=== PATIENT | female | born 1990 | race Caucasian/White ===

== ENCOUNTER 2020-07-01 06:57 | Emergency (ER) | payer OTHER, SELFPAY ==
--- NOTE | 2020-07-01 07:00 | XR_ITS ---
WS: [id number] Exam: XR chest 1V portable [id number] Date/Time of Exam: 07/01/2020 8:18 AM Reason For Exam: chest pain Comparison 02/18/2016. Findings: The lungs are clear and fully expanded. Costophrenic angles are sharp. No infiltrates. Bronchovascula r relief appears normal. Cardiac silhouette is unremarkable. Bony elements are intact. XR/XR chest 1V portable [id number] IMPRESSION: Unremarkable chest radiograph.
--- NOTE | 2020-07-01 07:00 | ECG_ITS ---
[facility] Test Date: 2020-07-01 Pat Name: Ramya Hardy Department: Room: Gender: Female Rn Er: : 1990 Requested By: Edna Cordova Order Number: [id number] Jaclyn MD: Kailey Kraft M.D. Measurements Intervals [place] Rate: 105 P: 39 RI: 148 QRS: 42 QRSD: 106 T: -1 QT: 322 QTc: 426 Interpretive Statements SINUS TACHYCARDIA INCOMPLETE RIGHT BUNDLE BRANCH BLOCK [90+ ms QRS DURATION, TERMINAL R IN V1/V2, 40+ ms S IN I/aVL/V4/V5/V6] NONSPECIFIC T-WAVE ABNORMALITY No previous ECG available for comparison Electronically Signed On 07-01-2020 12:56:50 CDT by Kailey Kraft M.D. [id number]
[2020-07-01 07:14] VITALS: BP 179/87; PULSE 105; RESP 18; O2SAT 99; BMI 42.3
--- NOTE | 2020-07-01 07:19 | ED_ITS ---
HPI - Chest Pain General: Chief Complaint: Chest Pain Stated Complaint: CP Time Seen by Provider: 07/01/20 06:58 Source: patient Mode of arrival: ambulatory Limitations: no limitations History of Present Illness: HPI narrative: Patient is a 30-year-old female with a history of diabetes and hypothyroidism who presents to ED today with a complaint of chest pain. Patient tells me while at work she began noticing pain down her entire left lower extremity. She initially thought it was related to her sciatica. She states she then began noticing chest pain and left arm tingling. She states she is no longer having leg pain. She has not noticed any color or temperature changes to the extremity. She denies swelling or calf pain. She describes her chest pain as chest tightness located in the left side of her chest. She is not having any difficulty breathing or shortness of breath. No nausea. No recent or current URI symptoms. Patient denies any previous cardiac or pulmonary history. PCP is Dr. Mendoza. complaint: chest pain Onset (ago): hour(s) (about one hour ago) Prior episodes: No Onset: during rest Pain location: left chest Pain radiation: none Quality: tightness Relieving factors: nothing Exacerbating factors: nothing Associated symptoms: Deny abdominal pain, dyspnea, fever(s), nausea, palpitations, syncope or vomiting Treatment prior to arrival: none Risk Factors: Coronary artery disease risk factors: diabetes Thoracic aortic dissection risk factors: none Related Data: On Oral Contraceptives: No Review of Systems Const: Denies: fever(s), chills, body aches, fatigue or malaise Eyes: Denies: change in vision, blurry vision or photophobia Card: Reports: chest pain; Denies: palpitations, irregular heart rhythm, edema, swelling of feet/ankles, lightheadedness, syncope, pre-syncope, dyspnea on exertion, orthopnea or leg pain with exertion Resp: Denies: dyspnea, productive cough, pain on inspiration or chest congestion GI: Denies: abdominal pain, nausea, vomiting, heartburn or diarrhea : Denies: flank pain or dysuria Musc: Denies: neck pain, back pain or joint pain Skin/Breast: Denies: rash Neuro: Reports: sensory changes (tingling to L UE); Denies: headache(s), numbness in extremities, weakness in extremities, difficulty walking, dizziness or confusion Physical Exam Const: COMMON NORMALS: no acute distress, patient oriented x3, no limitations and alert GENERAL APPEARANCE: cooperative NUTRITIONAL APPEARANCE: obese ORIENTATION/CONSCIOUSNESS: Yes awake, Yes oriented to person, Yes oriented to place and Yes oriented to time HENMT: COMMON NORMALS: normocephalic and atraumatic HEAD & SCALP: normal to inspection, normocephalic and atraumatic Neck/C-Spine: COMMON NORMALS: full ROM, no lymphadenopathy and no meningeal signs Chest: COMMONS NORMALS: normal inspection of the chest CHEST: Yes tenderness OTHER: mild tenderness to L anterior chest but she states she doesn't really produce her symptoms Resp: COMMON NORMALS: normal respiratory effort and clear to auscultation bilaterally AUSCULTATION: clear to auscultation bilaterally Cardio: COMMON NORMALS: regular rate and regular rhythm RATE: regular rate RHYTHM: regular rhythm GI: COMMON NORMALS: Normal to inspection, nondistended, normoactive bowel sounds present, Soft to palpation, non-tender, No hepatosplenomegaly present and no masses PALPATION: Yes Soft to palpation and Yes No hepatosplenomegaly present Extremity: COMMON NORMALS: capillary refill normal, no clubbing, cyanosis or edema, no calf tenderness and no pedal edema Neuro: DIALLO COMA SCALE: document GCS findings [place] coma scale eye opening: Spontaneous [place] coma scale verbal response: Orientated [place] coma scale motor response: Obey commands [place] coma scale total score: 15 COMMON NORMALS: patient oriented x3, moves all extremities, no focal motor deficits and no sensory deficits noted SENSORIUM/ORIENTATION: Yes alert, Yes oriented to person, Yes oriented to place and Yes oriented to time MENINGEAL SIGNS: Yes no meningeal signs MOTOR EXAM: 5/5 motor strength present throughout Skin: NARRATIVE SKIN EXAM: no diaphoresis Course Vital Signs: Vital signs: Vital Signs Pulse Rate 100 07/01/20 10:29 Respiratory Rate 22 H 07/01/20 10:29 Blood Pressure 146/85 07/01/20 10:29 Pulse Oximetry 98 07/01/20 10:29 MDM - Chest Pain MDM Narrative: Medical decision making narrative: Patient clinically appears in no acute distress. Her vital signs been stable. Initial and repeat EKGs without ischemic changes. Baseline troponin was 6 with a delta of 0. She has mild elevations to her transaminases most likely related to fatty liver. CXR is normal. Glucose is elevated however patient states they have been running high recently. She has no signs or symptoms concerning for DKA. She does have some tenderness to palpation of her left anterior chest wall. She is completely pain-free after IV morphine. Recommend she follow-up with PCP if symptoms persist. Return to ED precautions given Lab Data: Labs: Lab Results 07/01/20 07/01/20 07/01/20 Range/Units 07:25 07:37 07:37 WBC Cancelled Corrected WBC Cancelled RBC Cancelled Hgb Cancelled Hct Cancelled MCV Cancelled MCH Cancelled MCHC Cancelled RDW Cancelled Plt Count Cancelled MPV Cancelled Gran % Cancelled Neut % (Auto) Cancelled Lymph % (Auto) Cancelled [place] % (Auto) Cancelled Eos % (Auto) Cancelled Baso % (Auto) Cancelled Neut # (Auto) Cancelled Lymph # (Auto) Cancelled [place] # (Auto) Cancelled Eos # (Auto) Cancelled Baso # (Auto) Cancelled Absolute Gran (aut o) Cancelled Nucleated RBC % (a uto) Cancelled Nucleated RBCs # Cancelled Sodium 132 L (136-145) mmol/L Potassium 4.1 (3.5-5.1) mmol/L Chloride 100 (98-107) mmol/L Carbon Dioxide 20 L (22-29) mmol/L Anion Gap 16.1 (5-19) BUN 9 (6-20) mg/dL Creatinine 0.4 L (0.5-0.9) mg/dL GFR Calculation 186.2 H (90-130) mL/min Glucose 283 H (65-115) mg/dL POC Glucose (70-110) mg/dL Calculated Osmolal ity 283 L (285-295) mOsm/k g Calcium 9.2 (8.5-10.5) mg/dL Total Bilirubin 0.2 (0.15-1.2) mg/dL AST 40 H (0-32) U/L ALT 68 H (0-33) U/L Alkaline Phosphata se 50 (35-105) IU/L Troponin T Baselin e 6 (0-10) ng/L Troponin T 120 Min pascual (0-10) ng/L Delta Troponin T (0-10) ABS# Total Protein 7.2 (6.6-8.7) g/dL Albumin 4.3 (3.5-5.2) g/dL Globulin 2.9 (1.3-4.6) g/dL HCG, Qual (Negative) 07/01/20 07/01/20 07/01/20 Range/Units 07:37 07:37 07:53 WBC 6.2 Corrected WBC RBC 4.74 Hgb 12.5 Hct 39.7 MCV 83.8 MCH 26.4 L MCHC 31.5 RDW 14.3 Plt Count 260 MPV 11.6 H Gran % Neut % (Auto) 60.6 Lymph % (Auto) 28.9 [place] % (Auto) 6.0 Eos % (Auto) 2.3 Baso % (Auto) 1.1 Neut # (Auto) 3.76 Lymph # (Auto) 1.8 [place] # (Auto) 0.4 Eos # (Auto) 0.1 Baso # (Auto) 0.1 Absolute Gran (aut o) Nucleated RBC % (a uto) 0 Nucleated RBCs # 0.0 Sodium (136-145) mmol/L Potassium (3.5-5.1) mmol/L Chloride (98-107) mmol/L Carbon Dioxide (22-29) mmol/L Anion Gap (5-19) BUN (6-20) mg/dL Creatinine (0.5-0.9) mg/dL GFR Calculation (90-130) mL/min Glucose (65-115) mg/dL POC Glucose 323 H (70-110) mg/dL Calculated Osmolal ity (285-295) mOsm/k g Calcium (8.5-10.5) mg/dL Total Bilirubin (0.15-1.2) mg/dL AST (0-32) U/L ALT (0-33) U/L Alkaline Phosphata se (35-105) IU/L Troponin T Baselin e (0-10) ng/L Troponin T 120 Min pascual (0-10) ng/L Delta Troponin T (0-10) ABS# Total Protein (6.6-8.7) g/dL Albumin (3.5-5.2) g/dL Globulin (1.3-4.6) g/dL HCG, Qual Negative (Negative) 07/01/20 Range/Units 09:55 WBC Corrected WBC RBC Hgb Hct MCV MCH MCHC RDW Plt Count MPV Gran % Neut % (Auto) Lymph % (Auto) [place] % (Auto) Eos % (Auto) Baso % (Auto) Neut # (Auto) Lymph # (Auto) [place] # (Auto) Eos # (Auto) Baso # (Auto) Absolute Gran (aut o) Nucleated RBC % (a uto) Nucleated RBCs # Sodium (136-145) mmol/L Potassium (3.5-5.1) mmol/L Chloride (98-107) mmol/L Carbon Dioxide (22-29) mmol/L Anion Gap (5-19) BUN (6-20) mg/dL Creatinine (0.5-0.9) mg/dL GFR Calculation (90-130) mL/min Glucose (65-115) mg/dL POC Glucose (70-110) mg/dL Calculated Osmolal ity (285-295) mOsm/k g Calcium (8.5-10.5) mg/dL Total Bilirubin (0.15-1.2) mg/dL AST (0-32) U/L ALT (0-33) U/L Alkaline Phosphata se (35-105) IU/L Troponin T Baselin e (0-10) ng/L Troponin T 120 Min pasc[place] 6.00 (0-10) ng/L Delta Troponin T 0 (0-10) ABS# Total Protein (6.6-8.7) g/dL Albumin (3.5-5.2) g/dL Globulin (1.3-4.6) g/dL HCG, Qual (Negative) Imaging Data^: CXR: Radiologist's impression: [address] [address] XRay Report Signed Patient: Ramya Hardy Unit #: [id number] : 1990 Age/Sex: 30 / F ADM Date: 07/01/20 Loc: ER Room/Bed: Attending Dr: Ordering Provider/Ordering MD: Edna Cordova Date of Service: 07/01/20 Procedure(s): XR chest 1V portable [id number] Accession Number(s): [id number] Report Number: [id number] WS: [id number] Exam: XR chest 1V portable [id number] Date/Time of Exam: 07/01/2020 8:18 AM Reason For Exam: chest pain Comparison 02/18/2016. Findings: The lungs are clear and fully expanded. Costophrenic angles are sharp. No infiltrates. Bronchovascular relief appears normal. Cardiac silhouette is unremarkable. Bony elements are intact. XR/XR chest 1V portable [id number] IMPRESSION: Unremarkable chest radiograph. Dictated By: Isauro York DO Signed By: Isauro York DO Signed Date/Time: 07/01/20819 DD/ 9 EKG Data^: EKG 1: EKG interpretation date: 07/01/20 EKG interpretation time: 07:16 Interpretation: Sinus tachycardia Rate 105 Incomplete RBBB No acute changes when compared to EKG performed on 12/2016 EKG 2: EKG interpretation date: 07/01/20 EKG interpretation time: 09:02 Interpretation: Sinus rhythm Rate 95 No acute changes from EKG performed earlier on same visit Discharge Plan Discharge Patient Disposition: Home Clinical Impression: Atypical chest pain Condition: Stable Prescriptions: No Action glyburide 5 mg tablet 10 mg PO BID RF: 0 levothyroxine 25 mcg tablet 25 mcg PO DAILY RF: 0 metformin 1,000 mg tablet 1,000 mg PO BID RF: 0 Tresiba FlexTouch U-100 100 unit/mL (3 mL) Insulin Pen 50 unit SUBCUT DAILY RF: 0 Discharge Orders: Discharge ED (Routine); Ordered 07/01/20 Ordered By: Edna Cordova Referrals: Michoacano Mendoza MD [Primary Care Provider] - Patient Instructions: Chest Pain - Noncardiac Activity Restrictions/Additional Instructions: Please follow-up with primary care if symptoms persist. He may return to the emergency department for severe chest pain, shortness of breath, difficulty breathing, passing out episodes, fever, or any other concerns you may have. Stand Alone Forms: Work/School Release Coding Level of Care Code ED Oil Well Engineer for Chandrakant Fwangie Exam Comprehensive
[2020-07-01 07:41] VITALS: BP 148/90; PULSE 95; RESP 19; O2SAT 98
[2020-07-01 07:48] VITALS: RESP 19
[2020-07-01] MEDS: morphine 4 mg/mL SDV 1 mL IVP (07:48)
[2020-07-01 07:53] LABS: Basophils # 0.1 10^3/uL (0.0-0.1); Basophils % 1.1 %; Eosinophils # 0.1 10^3/uL (0.0-0.8); Eosinophils % 2.3 %; Hematocrit 39.7 % (37.0-47.0); Hemoglobin 12.5 g/dL (11.5-15.3); Lymphocytes # 1.8 10^3/uL (0.8-4.8); Lymphocytes % 28.9 %; Mean Corpuscular HGB Conc 31.5 g/dL (30.0-36.0); Mean Corpuscular Hemoglobin 26.4 pg (28.0-34.0); Mean Corpuscular Volume 83.8 fL (81-99); Mean Platelet Volume 11.6 fL (7.4-10.4); Monocytes # 0.4 10^3/uL (0.2-0.9); Neutrophils # 3.76 10^3/uL (1.8-7.7); Neutrophils % 60.6 %; Nucleated Red Blood Cells % 0 %; Platelet Count 260 10^3/cmm (130-400); Red Blood Count 4.74 10^6/uL (4.1-5.3); Red Cell Distribution Width 14.3 % (12.1-15.1); White Blood Count 6.2 10^3/uL (4.0-10.0)
[2020-07-01 08:00] LABS: HCG, Serum Qual Negative (Negative)
[2020-07-01 08:03] LABS: Glucose Point of Care 323 mg/dL (70-110)
[2020-07-01 08:05] LABS: Alanine Aminotransferase 68 U/L (0-33); Albumin Level 4.3 g/dL (3.5-5.2); Alkaline Phosphatase 50 IU/L (35-105); Anion Gap 16.1 (5-19); Aspartate Amino Transferase 40 U/L (0-32); Blood Urea Nitrogen 9 mg/dL (6-20); Calcium 9.2 mg/dL (8.5-10.5); Carbon Dioxide 20 mmol/L (22-29); Chloride 100 mmol/L (98-107); Globulin 2.9 g/dL (1.3-4.6); Glomerular Filtration Rate 186.2 mL/min (90-130); Glucose 283 mg/dL (65-115); Osmolality Calculated 283 mOsm/kg (285-295); Potassium 4.1 mmol/L (3.5-5.1); Sodium 132 mmol/L (136-145); Total Bilirubin 0.2 mg/dL (0.15-1.2); Total Protein 7.2 g/dL (6.6-8.7); Troponin(5th) Baseline 6 ng/L (0-10)
[2020-07-01] MEDS: ondansetron 2 mg/ML SDV 2 mL 4 MG IVP (08:21)
[2020-07-01 08:42] VITALS: BP 142/4; PULSE 92; RESP 18; O2SAT 96
--- NOTE | 2020-07-01 09:00 | ECG_ITS ---
[facility] Test Date: 2020-07-01 Pat Name: Ramya Hardy Department: Room: Gender: Female Church Secretary: : 1990 Requested By: Edna Cordova Order Number: [id number] Jaclyn MD: Kailey Kraft M.D. Measurements Intervals [place] Rate: 95 P: 30 SD: 141 QRS: 29 QRSD: 100 T: 3 QT: 330 QTc: 416 Interpretive Statements SINUS RHYTHM NONSPECIFIC T-WAVE ABNORMALITY Compared to ECG 07/01/2020 07:16:37 Sinus tachycardia no longer present Incomplete right bundle-branch block no longer present T-wave abnormality still present Electronically Signed On 07-01-2020 13:01:35 CDT by Kailey Kraft M.D. [id number]
[2020-07-01 10:23] LABS: Troponin 5 2HR Delta 0 ABS# (0-10)
[2020-07-01 10:29] VITALS: BP 146/85; PULSE 100; RESP 22; O2SAT 98
[2020-07-01 10:54] VITALS: BP 130/77; PULSE 98; RESP 18; O2SAT 98
== END 2020-07-01 10:55 | disposition home or self-care (01) ==
PROVIDERS: Emergency Provider Physician Assistant; PCP Family Medicine
DX: R07.89 Other chest pain (principal); Z79.4 Long term (current) use of insulin; E11.9 Type 2 diabetes mellitus without complications
CPT/HCPCS: 36415; 36416; 71045; 80053; 82962; 84484; 84703; 85025; 93005; 96374; 96375; 99284; J2270; J2405

== ENCOUNTER 2020-11-30 16:06 | Emergency (ER) | payer OTHER, SELFPAY ==
[2020-11-30 16:29] VITALS: BP 148/85; PULSE 96; RESP 16; TEMP 36.2; O2SAT 95; BMI 42.9
[2020-11-30 16:35] VITALS: RESP 18
--- NOTE | 2020-11-30 16:36 | XRR_ITS ---
PROCEDURE INFORMATION: Exam: XR Thoracic Spine Exam date and time: 11/30/2020 4:36 PM Age: 30 years old Clinical indication: Injury or trauma; Fall; Blunt trauma (contusions or hematomas); Additional info: Pain after fall TECHNIQUE: Imaging protocol: XR of the thoracic spine. Views: 3 views. COMPARISON: CR XR chest 1V portable [id number] 07/01/2020 8:06 AM FINDINGS: Bones/joints: Normal. No acute fracture. Normal alignment. Soft tissues: Unremarkable. XR/XR thoracic spine 3V* [id number] IMPRESSION: No acute findings.
--- NOTE | 2020-11-30 16:36 | XRR_ITS ---
PROCEDURE INFORMATION: Exam: XR Cervical Spine Exam date and time: 11/30/2020 4:36 PM Age: 30 years old Clinical indication: Injury or trauma; Fall; Blunt trauma; Additional info: Pain TECHNIQUE: Imaging protocol: XR of the cervical spine. Views: 2 or 3 views. COMPARISON: CT Cervical Spine wo* [id number] 07/27/2014 4:40 PM FINDINGS: Bones/joints: Normal. No acute fracture. Normal alignment. Soft tissues: Unremarkable. XR/XR cervical spine 3V* [id number] IMPRESSION: No acute findings.
--- NOTE | 2020-11-30 16:46 | W.ED.FALL ---
HPI - Fall General: Chief Complaint: Fall Stated Complaint: fall, pain in R shoulder/neck &back Time Seen by Provider: 11/30/20 16:35 History of Present Illness: HPI Narrative: 30-year-old female who tripped and fell over her cat complaining of right shoulder some neck and upper back pain no loss of consciousness no other injuries. No previous injuries to her neck or back MD complaint: fall Onset (ago): minute(s) Fall from: standing Fall witnessed: yes, by family Place fall occurred: home Loss of consciousness: None Prolonged down time: no Context: tripped/slipped Location of injury: back Location of injury - extremities: Right: shoulder Severity: mild Quality: aching Associated symptoms-after fall: Denies abdominal pain, chest pain, confusion, difficulty walking, headache(s), hematuria, lightheadedness, neck pain, numbness, short of breath, vertigo or weakness Review of Systems Const: Denies: fever(s), chills, body aches, change in appetite, fatigue or malaise ENMT: Denies: throat pain, ear or mastoid pain, nasal discharge or nasal congestion Card: Denies: chest pain or lightheadedness Resp: Denies: dyspnea, productive cough or non-productive cough GI: Denies: abdominal pain : Denies: hematuria Musc: Denies: neck pain Skin/Breast: Denies: rash or pruritus Neuro: Denies: headache(s), difficulty walking, vertigo or confusion Physical Exam Const: COMMON NORMALS: no acute distress GENERAL APPEARANCE: cooperative and comfortable ORIENTATION/CONSCIOUSNESS: Yes awake, Yes oriented to person, Yes oriented to place and Yes oriented to time HENMT: COMMON NORMALS: normocephalic, atraumatic, hearing grossly normal bilaterally, external ears normal, EAC's normal and TM's normal bilaterally HEAD & SCALP: normocephalic and atraumatic EXTERNAL EAR: Yes external ears normal EXTERNAL AUDITORY CANAL: EAC's normal TYMPANIC MEMBRANE: TM's normal bilaterally Eye: COMMON NORMALS: Equal, round and reactive pupils present, EOMs intact bilaterally, conjunctivae normal and no scleral icterus CONJUNCTIVA: Yes conjunctivae normal PUPIL: Yes Equal, round and reactive pupils present Neck/C-Spine: COMMON NORMALS: full ROM, no lymphadenopathy and supple Resp: COMMON NORMALS: normal respiratory effort, No retractions, No use of accessory muscles and clear to auscultation bilaterally AUSCULTATION: clear to auscultation bilaterally Cardio: COMMON NORMALS: regular rate, regular rhythm and No murmurs present (Cardio) RATE: regular rate RHYTHM: regular rhythm GI: COMMON NORMALS: Soft to palpation and No hepatosplenomegaly present AUSCULTATION: Yes normoactive bowel sounds PALPATION: Yes Soft to palpation, No Tenderness to palpation present (GI), No Guarding due to palpation present (GI) and Yes No hepatosplenomegaly present Extremity: COMMON NORMALS: normal to inspection, capillary refill normal, no clubbing, cyanosis or edema, no calf tenderness and no pedal edema Neuro: SENSORIUM/ORIENTATION: Yes oriented to person, Yes oriented to place and Yes oriented to time Skin: COMMON NORMALS: no rashes or lesions noted GENERAL SKIN EXAM: no rashes or lesions noted Course Vital Signs: Vital signs: Vital Signs Temperature 97.2 F L 11/30/20 16:29 Pulse Rate 98 11/30/20 18:10 Respiratory Rate 17 11/30/20 18:10 Blood Pressure 162/93 11/30/20 18:10 Pulse Oximetry 97 11/30/20 18:10 MDM - Fall MDM Narrative: Medical decision making narrative: Reviewed imaging with the patient no acute fractures discharge home diclofenac to use as needed follow-up as needed Discharge Plan Discharge Patient Disposition: Home Clinical Impression: Fall, Cervicalgia, Thoracic back pain Condition: Stable Prescriptions: New diclofenac sodium 75 mg tablet,delayed release (DR/EC) 75 mg PO Q12H PRN (Reason: pain) Qty: 20 RF: 0 No Action glyburide 5 mg tablet 10 mg PO BID RF: 0 levothyroxine 25 mcg tablet 25 mcg PO DAILY RF: 0 metformin 1,000 mg tablet 1,000 mg PO BID RF: 0 Tresiba FlexTouch U-100 100 unit/mL (3 mL) Insulin Pen 50 unit SUBCUT DAILY RF: 0 Discharge Orders: Discharge ED (Routine); Ordered 11/30/20 Ordered By: Thony Chowdary Referrals: Michoacano Mendoza MD [Primary Care Provider] - Patient Instructions: Opioid Safety Stand Alone Forms: Work/School Release Coding Level of Care Code ED Pattern Grader for Chg Fwd Exam Comprehensive
--- NOTE | 2020-11-30 17:09 | XRR_ITS ---
PROCEDURE INFORMATION: Exam: XR Right Shoulder Exam date and time: 11/30/2020 5:09 PM Age: 30 years old Clinical indication: Injury or trauma; Fall; Blunt trauma (contusions or hematomas); Shoulder; Right; Additional info: Pain TECHNIQUE: Imaging protocol: XR Right shoulder. Views: 2 or more views. COMPARISON: CR XR chest 1V portable [id number] 07/01/2020 8:06 AM FINDINGS: Bones/joints: Normal. Soft tissues: Normal. XR/XR shoulder RT min 2V* [id number] IMPRESSION: No acute findings.
[2020-11-30 18:10] VITALS: BP 162/93; PULSE 98; RESP 17; O2SAT 97
== END 2020-11-30 18:10 | disposition home or self-care (01) ==
PROVIDERS: Emergency Provider Family Medicine; PCP Family Medicine
DX: M54.6 Pain in thoracic spine (principal); M54.2 Cervicalgia; Z79.4 Long term (current) use of insulin
CPT/HCPCS: 72040; 72072; 73030; 99282

== ENCOUNTER → 2021-03-04 07:53 | Outpatient (BNVA) | payer OTHER, SELFPAY | PROVIDERS: PCP Family Medicine; Referring Provider Family Medicine; Visit Provider Specialist | DX: R20.0 Anesthesia of skin (principal); G56.01 Carpal tunnel syndrome, right upper limb | CPT/HCPCS: 95908 ==

== ENCOUNTER → 2021-04-10 00:01 | Outpatient (BNVA) | payer OTHER, SELFPAY | PROVIDERS: PCP Family Medicine; Visit Provider Orthopaedic Surgery | DX: Z01.812 Encounter for preprocedural laboratory examination (principal); Z20.822 Contact with and (suspected) exposure to COVID-19 | CPT/HCPCS: 87635 ==

== ENCOUNTER 2021-04-17 08:56 | Day surgery (SDC) | payer OTHER, SELFPAY ==
[2021-04-16 14:26] VITALS: BMI 44.5
[2021-04-17] VITALS (7 sets, daily range): BP systolic 102–141; BP diastolic 59–78; PULSE 87–101; RESP 18; TEMP 36.2–36.8; O2SAT 93–100
--- NOTE | 2021-04-17 08:29 | W.PM.OPSUD ---
Surgery/Procedure H&P Update DATE OF PROCEDURE: April 17, 2021 DATE H&P PERFORMED: 04/09/21 H&P UPDATE INFORMATION: I have reviewed H&P completed within last 30 days PLANNED PROCEDURE: Operation Date: 04/17/21 10:15 Proposed Procedures p Carpal Tunnel Release(Right) - Bob Martin MD
[2021-04-17 09:32] LABS: OR HCG Qualitative Urine Negative (Negative)
[2021-04-17 09:54] LABS: Glucose Point of Care 99 mg/dL (70-110)
[2021-04-17] MEDS: sodium chloride 0.9% 1,000 ML 30 ML IV (09:56)
--- NOTE | 2021-04-17 10:41 | P.OP_ITS ---
Operative Report Date of procedure: April 17, 2021 Procedure: Pre-op Diagnosis: Right carpal tunnel release Post-op diagnosis: same Post-op Findings: Same Procedure Done: Right carpal tunnel release Pathology: none sent Anesthesia: Nerve Block ([place] block) Estimated blood loss (mL): 2 Tourniquet time (min): 20 Condition: stable Disposition: PACU Procedure: Patient was taken to the operating room and anesthesia provided by the anesthesia service. She was prepped and draped with the arm exposed. A timeout was performed. A 3 cm long incision was made in line with the fourth ray from the distal edge of the carpal tunnel extending proximally. The subcutaneous fat and palmar fascia was divided with a scalpel blade. Under loupe magnification the ulnar neurovascular bundle was identified distally. A hemostat could be passed under the transverse carpal ligament allowing the dis garrett 25% to be divided. A slotted guide was then passed beneath the transverse carpal ligament and the middle 50% divided. Blunt scissors were then passed over the guide freeing the proximal ligament. The tourniquet was deflated. Hemostasis provided with electrocautery. Wound edges were infiltrated with 10 cc of a half percent Marcaine solution. Skin edges were reapproximated with 3-0 Prolene. Sterile dressings were applied. The patient was taken to the recovery room in stable condition
--- NOTE | 2021-04-17 13:09 | ANE.PACU2 ---
Inpatient post-anesthesia follow up: Airway intact: Yes Vital signs: Temperature 98.2 F Pulse Rate 87 Respiratory Rate 18 Blood Pressure 107/78 Pulse Oximetry 96 Oxygen Delivery Me thod Room Air Oxygen Flow Rate Fraction of Inspir ed Oxygen Hydration adequate: Yes Nausea and vomiting: No Pain level: 1 Mental status: Baseline
== END 2021-04-17 13:08 | disposition home or self-care (01) ==
LOC: OR 09:03
PROVIDERS: Anesthesiology; PCP Family Medicine; Visit Provider Orthopaedic Surgery
PROC: (CPT 64721; principal; 2021-04-17 10:05)
DX: G56.01 Carpal tunnel syndrome, right upper limb (principal)
CPT/HCPCS: 64721; 36416; 81025; 82962; 84703; J0690; J2250; J2704; J3010; J3490; J7030

== ENCOUNTER → 2021-05-19 08:16 | Outpatient (BNVA) | payer OTHER, SELFPAY | PROVIDERS: PCP Family Medicine; Visit Provider Orthopaedic Surgery | DX: Z01.812 Encounter for preprocedural laboratory examination (principal); Z20.822 Contact with and (suspected) exposure to COVID-19 | CPT/HCPCS: 87635 ==

== ENCOUNTER 2021-05-22 07:11 | Day surgery (SDC) | payer OTHER, SELFPAY ==
[2021-05-21 15:06] VITALS: BMI 44.9
[2021-05-22 07:26] VITALS: BP 153/86; PULSE 92; RESP 18; TEMP 36.4; O2SAT 99
[2021-05-22 07:52] LABS: Glucose Point of Care 152 mg/dL (70-110)
--- NOTE | 2021-05-22 08:00 | ANES.PREANE2 ---
Pre-Anesthetic Assessment Height/Weight: Height 1.69 m Weight 128.367 kg Temp Pulse Resp BP Pulse Ox 97.5 F L 92 18 153/86 99 05/22/21 07:26 05/22/21 07:26 05/22/21 07:26 05/22/21 07:26 05/22/21 07:26 Preop Diagnosis: Left Carpal tunnel syndrome Operation Date: 05/22/21 08:20 Proposed Procedures p Carpal Tunnel Release 59807 G56.02(Left) - Bob Martin MD Familial anesthetic complications: None Was Beta Carlos taken within 24 hours: N/A Was Clonidine taken within 24 hours: N/A Last intake: Intake Last Liquid Date 05/21/21 Last Liquid Time 19:30 Last Solid Date 05/21/21 Last Solid Time 19:30 Social No alcohol and No tobacco Exam alert, oriented x 3, clear to auscultation bilaterally and regular rate & rhythm Airway Submandibular: within normal limits Cervical ROM: within normal limits Mallampati: Class II Dentition: full CV/HEM Anemia Metabolic Diabetes Mellitus, Morbid Obesity and Thyroid Disease Anesthetic Plan ASA status: 3 Anesthesia: MAC and Regional (specify below) (Julius mad[place]) Medications/Allergies Home Medications Medication Instructions Recorded Confirmed Last Taken Type glyburide 5 mg tablet 10 mg PO BID 07/01/20 05/22/21 05/21/21 History levothyroxine 25 mcg tablet 25 mcg PO DAILY 07/01/20 05/22/21 05/21/21 History metformin 1,000 mg tablet 1,000 mg PO BID 07/01/20 05/22/21 05/21/21 History ferrous sulfate 27 mg iron tablet 27 mg PO DAILY 04/09/21 05/22/21 05/21/21 History insulin glargine 100 unit/mL (3 90 unit SUBCUT BID 04/16/21 05/22/21 05/21/21 History mL) subcutaneous pen (Lantus Solostar U-100 Insulin) liraglutide 0.6 mg/0.1 mL (18 mg/3 1.2 mg SUBCUT DAILY 04/16/21 05/22/21 05/21/21 History mL) subcutaneous pen injector (Victoza 2-Jerry) Allergies Allergy/AdvReac Type Severity Reaction Status Date / Time No Known Allergies Allergy Verified 05/21/21 15:04 [facility] Anesthesia Social History Smoking and tobacco status: never smoked Female Reproductive History Date of last menstrual period: 03/17/21 Data Anesthesia Cardiac Studies: No Data to Display
--- NOTE | 2021-05-22 08:05 | W.PM.OPSUD ---
Surgery/Procedure H&P Update DATE OF PROCEDURE: May 22, 2021 DATE H&P PERFORMED: 05/06/21 H&P UPDATE INFORMATION: I have reviewed H&P completed within last 30 days PREOP DIAGNOSIS: Left Carpal tunnel syndrome PLANNED PROCEDURE: Operation Date: 05/22/21 08:20 Proposed Procedures p Carpal Tunnel Release 11287 G56.02(Left) - Bob Martin MD
[2021-05-22] MEDS: sodium chloride 0.9% 1,000 ML 30 ML IV (08:12)
--- NOTE | 2021-05-22 09:01 | PM.OP ---
Operative Report Date of procedure: May 22, 2021 Pre-op diagnosis: Preop Diagnosis Left Carpal tunnel syndrome Post-op diagnosis: same Post-op diagnosis: Same Procedure done: Left carpal tunnel release Pathology: none sent Surgeon: Bob Martin Anesthesia: Nerve Block (Julius block) Estimated blood loss (mL): 2 Tourniquet time (min): 20 Condition: stable Disposition: PACU Procedure: Patient was taken to the operating room and anesthesia provided by the anesthesia service. She was prepped and draped with the arm exposed. A timeout was performed. A 3 cm long incision was made in line with the fourth ray from the distal edge of the carpal tunnel extending proximally. The subcutaneous fat and palmar fascia was divided with a scalpel blade. Under loupe magnification the ulnar neurovascular bundle was identified distally. A hemostat could be passed under the transverse carpal ligament allowing the distal 25% to be divided. A slotted guide was then passed beneath the transverse carpal ligament and the middle 50% divided. Blunt scissors were then passed over the guide freeing the proximal ligament. The tourniquet was deflated. Hemostasis provided with electrocautery. Wound edges were infiltrated with 10 cc of a half percent Marcaine solution. Skin edges were reapproximated with 3-0 Prolene. Sterile dressings were applied. The patient was taken to the recovery room in stable condition
[2021-05-22 09:02] VITALS: BP 126/73; PULSE 80; RESP 16; TEMP 36.1; O2SAT 99
[2021-05-22 09:07] VITALS: BP 117/77; PULSE 81; RESP 18; O2SAT 99
[2021-05-22 09:12] VITALS: BP 126/77; PULSE 80; RESP 18; TEMP 36.2; O2SAT 99
[2021-05-22 09:18] VITALS: BP 119/73; PULSE 81; RESP 16; TEMP 36.1; O2SAT 97
[2021-05-22 09:48] VITALS: BP 115/75; PULSE 78; RESP 16; TEMP 36.8; O2SAT 99
--- NOTE | 2021-05-22 14:16 | ANE.PACU2 ---
Inpatient post-anesthesia follow up: Airway intact: Yes Vital signs: Temperature 98.2 F Pulse Rate 78 Respiratory Rate 16 Blood Pressure 115/75 Pulse Oximetry 99 Oxygen Delivery Me thod Room Air Oxygen Flow Rate 6 Fraction of Inspir ed Oxygen Hydration adequate: Yes Nausea and vomiting: Yes Pain level: 1 Mental status: Baseline
== END 2021-05-22 10:00 | disposition home or self-care (01) ==
PROVIDERS: PCP Family Medicine; Visit Provider Orthopaedic Surgery
PROC: (CPT 64721; principal; 2021-05-22 08:10)
DX: G56.02 Carpal tunnel syndrome, left upper limb (principal); E11.9 Type 2 diabetes mellitus without complications; E66.01 Morbid (severe) obesity due to excess calories; Z68.42 Body mass index [BMI] 45.0-49.9, adult; Z79.84 Long term (current) use of oral hypoglycemic drugs; Z79.4 Long term (current) use of insulin
CPT/HCPCS: 64721; 36416; 81025; 82962; J0690; J1100; J2250; J2405; J2704; J3010; J3490; J7030

== ENCOUNTER → 2022-01-28 11:46 | Outpatient (BNVA) | payer OTHER, SELFPAY | PROVIDERS: PCP Family Medicine; Visit Provider Clinical Nurse Specialist Adult Health | DX: N39.0 Urinary tract infection, site not specified (principal); N30.01 Acute cystitis with hematuria; M54.31 Sciatica, right side; E11.9 Type 2 diabetes mellitus without complications; M54.32 Sciatica, left side | CPT/HCPCS: 81000; 87086 ==

== ENCOUNTER 2022-02-05 10:50 | Outpatient (CLI) | payer OTHER, SELFPAY ==
--- NOTE | 2022-02-05 10:58 | XR_ITS ---
WS: [id number] Exam: XR lumbar spine 2-3V* [id number] Date/Time of Exam: 02/05/2022 10:58 AM Reason For Exam: Right hip pain Comparison 11/04/2017. 6 lumbar vertebra are noted. No fracture or dislocation. Disc spaces are preserved. Posterior element s are intact. No significant scoliosis. SI joints are open. XR/XR lumbar spine 2-3V* [id number] IMPRESSION: 1. Unremarkable lumbar spine study.
--- NOTE | 2022-02-05 10:58 | XR_ITS ---
WS: [id number] Exam: XR hip RT 2-3V wo/w pel* [id number] Date/Time of Exam: 02/05/2022 10:58 AM Reason For Exam: Right hip pain No fracture or dislocation. The joint compartment is well maintained. Small soft tissue calcification just above the greater trochanter. XR/XR hip RT 2-3V wo/w pel* [id number] IMPRESSION: 1. Negative right hip.
== END 2022-02-05 10:51 | disposition home or self-care (01) ==
LOC: RAD 10:52
PROVIDERS: PCP Family Medicine; Visit Provider Family Medicine
DX: M25.551 Pain in right hip (principal); M54.16 Radiculopathy, lumbar region
CPT/HCPCS: 72100; 73502

== ENCOUNTER 2022-03-18 07:29 | Outpatient (CLI) | payer OTHER, SELFPAY ==
--- NOTE | 2022-03-18 08:00 | MR_ITS ---
WS: [id number] MRI HEAD WITH CONTRAST WITH ATTENTION TO THE INTERNAL AUDITORY CANALS TECHNIQUE: Sagittal T1, T2 axial, T2 axial flair, axial susceptibility weighted imaging, axial diffus ion weighted images, and coronal T2 images were obtained. Pre and post T1 axial and post T1 coronal i mages. ADC and FSPGR images. Post gadolinium images with attention to the internal auditory canals. A xial fiesta imaging. CLINICAL INFORMATION: Hearing loss, left facial numbness COMPARISON: None. FINDINGS: No evidence of restricted diffusion to suggest acute ischemia. Ventricular system and basal cisterns are patent. No suspicious intracranial signal abnormalities. Normal vasquez-white differentiation. No ev idence of mass or mass effect. Normal posterior fossa. Normal vascular flow voids at the skull base. No extra-axial fluid collections. Paranasal sinuses and mastoid air cells well aerated. No hemosideri n on susceptibly weighted images. Noncontrast IACs are normal in appearance. Normal visualized proximal 7th and 8th cranial nerves. Nor mal cavernous sinuses and Meckel's cave. Normal trigeminal nerve root entry zones. Partially visualiz ed enlarged lymph nodes in the upper cervical chain nonspecific partially visualized. This is most li tania reactive in a patient this age. Normal visualized posterior nasopharynx. MR/MR iac's wo con [id number] IMPRESSION: 1. No evidence of restricted diffusion to suggest acute ischemia. 2. No suspicious intracranial signal abnormalities. 3. Noncontrast IACs are normal in appearance. Normal proximal 7th and 8th cran ial nerves. Normal trigeminal nerve root entry zone's. 4. Mastoid air cells are well aerated. 5. Enlarged lymph nodes in the upper cervical chains partially visualized nons pecific but most likely reactive in a patient this age. Recommend clinical mumtaz elation. 6. No hemosiderin on the susceptibility weighted images.
== END 2022-03-18 07:30 | disposition home or self-care (01) ==
LOC: RAD 07:31
PROVIDERS: PCP Family Medicine; Visit Provider Family Medicine
DX: H91.90 Unspecified hearing loss, unspecified ear (principal); R20.0 Anesthesia of skin; R59.0 Localized enlarged lymph nodes
CPT/HCPCS: 70551

== ENCOUNTER → 2022-09-05 10:33 | Outpatient (BNVA) | payer OTHER, SELFPAY | PROVIDERS: PCP Family Medicine; Visit Provider Registered Nurse Neonatal Intensive Care | DX: S60.211A Contusion of right wrist, initial encounter (principal); X58.XXXA Exposure to other specified factors, initial encounter | CPT/HCPCS: 73110 ==

== ENCOUNTER 2023-03-17 05:18 | Emergency (ER) | payer OTHER, SELFPAY ==
[2023-03-17 05:22] VITALS: BP 176/91; PULSE 119; RESP 18; TEMP 36.8; O2SAT 98; BMI 42.3
--- NOTE | 2023-03-17 05:36 | ED_ITS ---
HPI - Skin/Abscess/Foreign Bdy General: Chief complaint: Skin/Abscess/Foreign Body Stated complaint: Spider Bite Time Seen by Provider: 03/17/23 05:22 History of Present Illness: 33-year-old female presents emergency de partment with complaints of area of redness and possible spider bite to her right flank area for the previous 1 week. She states the area seems to have become more painful and has spread to a more circular pattern. She is unsure specifically if she received a spider bite but states that the area has gotten bigger. She states that if you touch the area the pain is a 4 out of 10. She denies fevers chills or night sweats. She denies known injury or trauma. Review of Systems General: Reports: 10 or more systems reviewed and unremarkable except in HPI and below Skin/Breast: Reports: erythema, skin tenderness, sores and new lesions PFSH ED PFSH: Medical History (Updated 03/17/23 @ 05:39 by Donn Walton MD) Sciatica Elevated blood pressure reading without diagnosis of hypertension Hx of renal calculi Hypothyroidism Diabetes mellitus type 2, on insulin Surgical History (Updated 01/28/22 @ 12:31 by Abelardo Kenney NP) Previous section X2 Family History (Updated 01/28/22 @ 12:33 by Abelardo Kenney NP) Sister Female fertility problems Other Diabetes Hyperlipidemia Hypertension Thyroid disease Social History (Updated 01/28/22 @ 12:09 by Abelardo Kenney NP) Smoking and tobacco/nicotine status: never used tobacco/nicotine Alcohol intake: never Substance/Drug Use: never Female Reproductive History: Date of last menstrual period: 02/23/23 Physical Exam Narrative: EXAM NARRATIVE: Constitutional: the patient appears well nourished and of normal development. Vital signs as documented. No acute distress at present. Alert and oriented-to person, place, time and situation. Head, eyes, ears, nose, mouth, throat: Normocephalic, atraumatic. Pupils-equal, round, reactive to light. No scleral icterus. Normal-appearing external ears. Normal appearing nasal turbinates, no drainage. No obvious oral lesions, posterior oropharynx without erythema or exudates. Neck: Supple, trachea is midline, no lymphadenopathy, no jugular venous distension, thyromegaly, or carotid bruits. Carotid upstrokes are brisk bilaterally. Lungs: clear to auscultation to all lung gee. Symmetrical rise and fall of chest, no obvious signs of increased work of breathing at present. Cardiac: Regular rate and rhythm, positive S1, S2. No murmurs, rubs or gallops that I can appreciate Abdomen: Soft, non-tender to palpation, normal active bowel sounds to all quadrants. No palpable masses, no organomegaly and abdominal bruits. Extremities: 2+ pulses in the upper extremities that are equal bilaterally, 2+ pulses in the lower extremities that are equal bilaterally. Non-edematous. Moves all extremities well, sensation to all extremities are noted. Skin: Warm, dry, intact. 4 cm area of erythema consistent with cellulitis to the right flank area there is a central area of necrosis noted. The wound is not draining and it is not fluctuant at present. Course Vital Signs: Vital signs: Vital Signs Temperature 98.3 F 03/17/23 05:22 Pulse Rate 119 H 03/17/23 05:22 Respiratory Rate 18 03/17/23 05:22 Blood Pressure 176/91 03/17/23 05:22 Pulse Oximetry 98 03/17/23 05:22 Oxygen Delivery Me thod Room Air 03/17/23 05:22 MDM - Skin/Abscess/Foreign Bdy Medicial Decision Making Physical exam completed and documented, I will provide the patient written prescription for antibiotics and antibiotic ointment. And I recommended follow- up with her primary care provider in 5 to 7 days for reevaluation. Medical Records I reviewed the patient's medical records. No radiology studies performed this visit Discharge Plan Discharge Patient Disposition: Home Clinical Impression: Cellulitis of right abdominal wall Condition: Stable Prescriptions: New cephalexin 500 mg capsule 500 mg PO BID 10 Days Qty: 20 0RF mupirocin 2 % ointment 1 applic topical BID Qty: 15 0RF No Action Victoza 2-Jerry 0.6 mg/0.1 mL (18 mg/3 mL) pen injector 1.2 mg SUBCUT DAILY Qty: 6 12RF levothyroxine 25 mcg tablet See Rx Instructions .ROUTE .COMPLEX Qty: 90 3RF Dose Instruction: TAKE 1 TABLET BY MOUTH IN THE MORNING 30 MINUTES PRIOR TO EATING WITH WATER ONLY Rx Instructions: TAKE 1 TABLET BY MOUTH IN THE MORNING 30 MINUTES PRIOR TO EATING WITH WATER ONLY metformin 1,000 mg tablet 1,000 mg PO BID Qty: 60 6RF glyburide 5 mg tablet See Rx Instructions .ROUTE .COMPLEX Qty: 120 6RF Dose Instruction: Take 2 tablets by mouth twice daily Rx Instructions: Take 2 tablets by mouth twice daily Lantus Solostar U-100 Insulin 100 unit/mL (3 mL) insulin pen 90 unit SUBCUT BID Qty: 15 11RF Discharge Orders: Discharge ED (Routine); Ordered 03/17/23 Ordered By: Donn Walton Referrals: Michoacano Mendoza MD [Primary Care Provider] - Discharge Diet: Advance as tolerated Discharge Activity: Resume usual activity Patient Instructions: Opioid Safety, Pain Management Activity Restrictions/Additional Instructions: Activity Restrictions/Additional Instructions: Thank you for choosing [facility] for your healthcare needs today. Please realize that you were seen in the Emergency Department and that we are providing you with an emergency medical screening exam and this may not be a complete and all inclusive of all the testing and or medical work-up that you may need to determine your ailment or severity of your illness. It is very important that you follow-up as instructed with your Primary care provider or Specialist for additional evaluation and to discuss your medical treatment plan. You may return to the Emergency Department should you have concerns or if your condition changes or worsens in any way. Follow-up with your primary care provider within the next 5 to 7 days to have your wound reevaluated for possible additional treatment to include incision and drainage. Coding Level of Care Code ED Sheet Layer for Chandrakant Hernandes
[2023-03-17 05:53] VITALS: BP 136/81; PULSE 109; RESP 16; O2SAT 95
== END 2023-03-17 05:53 | disposition home or self-care (01) ==
PROVIDERS: Emergency Provider Internal Medicine; PCP Family Medicine
DX: L03.311 Cellulitis of abdominal wall (principal); Z79.84 Long term (current) use of oral hypoglycemic drugs; Z79.4 Long term (current) use of insulin; E11.9 Type 2 diabetes mellitus without complications
CPT/HCPCS: 99283

== ENCOUNTER 2023-05-03 09:31 | Emergency (ER) | payer OTHER, SELFPAY ==
[2023-05-03 09:36] VITALS: BP 149/94; PULSE 107; TEMP 37.1; O2SAT 99; BMI 43.5
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
[2023-05-03 10:41] VITALS: BP 119/45; PULSE 70; RESP 16
[2023-05-03 11:00] VITALS: RESP 18
== END 2023-05-03 11:01 | disposition home or self-care (01) ==
PROVIDERS: Emergency Provider Physician Assistant; PCP Family Medicine
DX: S39.012A Strain of muscle, fascia and tendon of lower back, initial encounter (principal); M25.552 Pain in left hip; Z79.84 Long term (current) use of oral hypoglycemic drugs; Z79.4 Long term (current) use of insulin; E11.9 Type 2 diabetes mellitus without complications; V89.2XXA Person injured in unspecified motor-vehicle accident, traffic, initial encounter
CPT/HCPCS: 70450; 72100; 72125; 73502; 99284

== ENCOUNTER → 2023-05-14 11:46 | Outpatient (BNVA) | payer OTHER, SELFPAY | PROVIDERS: PCP Family Medicine; Visit Provider Family Medicine | DX: E53.8 Deficiency of other specified B group vitamins (principal); E11.9 Type 2 diabetes mellitus without complications | CPT/HCPCS: 82607; 84681 ==

== ENCOUNTER → 2023-12-02 13:50 | Outpatient (BNVA) | payer OTHER, SELFPAY | PROVIDERS: PCP Family Medicine; Visit Provider Family Medicine | DX: E11.9 Type 2 diabetes mellitus without complications (principal); Z51.81 Encounter for therapeutic drug level monitoring | CPT/HCPCS: 80053; 83036; 85025 ==

== ENCOUNTER 2024-05-06 11:45 | Emergency (ER) | payer OTHER, SELFPAY ==
[2024-05-06 11:58] VITALS: BP 148/75; PULSE 98; RESP 17; TEMP 36.9; O2SAT 99; BMI 43.8
--- NOTE | 2024-05-06 12:33 | XRR_ITS ---
PROCEDURE INFORMATION: Exam: XR Chest Exam date and time: 05/06/2024 1:03 PM Age: 34 years old Clinical indication: Cough and dyspnea; Patient HX: Dyspnea; Cough; Additional info: Dyspnea/cough TECHNIQUE: Imaging protocol: Radiologic exam of the chest. Views: 1 view. COMPARISON: CR XR chest 1V portable [id number] 07/01/2020 8:06 AM FINDINGS: Lungs: Unremarkable. No consolidation. Pleural spaces: Unremarkable. No pleural effusion. No pneumothorax. Heart/Mediastinum: Unremarkable. No cardiomegaly. Bones/joints: Unchanged very mild scoliosis. Otherwise, unremarkable. XR/XR chest 1V portable [id number] IMPRESSION: No acute disease.
--- NOTE | 2024-05-06 13:52 | ED_ITS ---
HPI - Allergic Reaction General: Chief complaint: Allergic Reaction Stated complaint: sore throat Time Seen by Provider: 05/06/24 12:57 Source: patient Mode of arrival: ambulatory Limitations: no limitations History of Present Illness: HPI narrative: Patient is a 34-year-old female presents to ED today with complaint of sore throat. Patient states symptoms started several days ago after breathing and hay. She states she has an allergy to hay and thinks this is what is causing her symptoms. She states she is having painful swallowing. She is able to swallow liquids and soft foods and control secretions normally. She has not been running fevers. No difficulty breathing. MD complaint: other (sore throat) Onset (ago): day(s) Exposure: other (hay) Associated symptoms: Reports dysphagia; Deny abdominal pain, hoarseness, nausea or vomiting Severity: moderate Treatment prior to arrival: other (otc throat lozenges/spray) Related Data Previous Rx's Medication Instructions Recorded cyclobenzaprine 10 mg tablet 10 mg PO TID PRN muscle spasm #30 05/14/23 tabs cyanocobalamin (vitamin B-12) 500 500 mcg PO DAILY #90 tabs 05/17/23 mcg tablet (Vitamin B-12) levothyroxine 25 mcg tablet See Rx Instructions .Route 07/13/23 .COMPLEX #90 tabs glyburide 5 mg tablet See Rx Instructions .Route 01/04/24 .COMPLEX #120 tabs metformin 1,000 mg tablet 1,000 mg PO BID #60 tabs 01/04/24 insulin glargine 100 unit/mL (3 100 unit SUBCUT BID #60 mL 01/05/24 mL) subcutaneous pen (Lantus Solostar U-100 Insulin) semaglutide 0.25 mg or 0.5 mg (2 0.25 mg (0.368 mL) SUBCUT Q7D #3 mL 02/28/24 mg/3 mL) subcutaneous pen injector (Ozempic) lidocaine HCl 2 % mucosal solution 15 ml mucous membrane QID #100 mL 05/06/24 (Lidocaine Viscous) Allergies Allergy/AdvReac Type Severity Reaction Status Date / Time No Known Allergies Allergy Verified 05/03/23 09:42 Review of Systems Const: Denies: fever(s), chills, body aches, fatigue or malaise ENMT: Reports: throat pain and odynophagia; Denies: enlarged tonsils, hoarseness, swelling of lips/tongue, oral sores, ear or mastoid pain, nasal discharge, nasal congestion or sinus pain Card: Denies: chest pain Resp: Denies: dyspnea GI: Reports: dysphagia; Denies: abdominal pain, nausea, vomiting, diarrhea or change in bowel habits Musc: Denies: neck pain Skin/Breast: Denies: rash Neuro: Denies: headache(s) PFSH ED PFSH: Medical History Sciatica Elevated blood pressure reading without diagnosis of hypertension Hx of renal calculi Hypothyroidism Diabetes mellitus type 2, on insulin Surgical History Previous section X2 Family History Sister Female fertility problems Other Diabetes Hyperlipidemia Hypertension Thyroid disease Social History Smoking and tobacco/nicotine status: never used tobacco/nicotine Alcohol intake: never Substance/Drug Use: never Female Reproductive History: Date of last menstrual period: 04/04/24 Physical Exam Const: COMMON NORMALS: no acute distress, patient oriented x3, no limitations, alert and well nourished GENERAL APPEARANCE: cooperative HENMT: FACE & SINUS: normal facial exam MOUTH: Normal oral and palatal mucosa present and lip normal THROAT: posterior oropharynx abnormal erythema and exudates Eye: GENERAL EYE: appearance normal, both eyes and all related structures Neck/C-Spine: COMMON NORMALS: no lymphadenopathy Resp: COMMON NORMALS: normal respiratory effort and clear to auscultation bilaterally AUSCULTATION: clear to auscultation bilaterally Cardio: COMMON NORMALS: regular rate and regular rhythm RATE: regular rate RHYTHM: regular rhythm Neuro: COMMON NORMALS: patient oriented x3 SENSORIUM/ORIENTATION: Yes alert Skin: COMMON NORMALS: no rashes or lesions noted GENERAL SKIN EXAM: no rashes or lesions noted Course Vital Signs: Vital signs: Vital Signs Temperature 98.5 F 05/06/24 11:58 Pulse Rate 98 05/06/24 11:58 Respiratory Rate 17 05/06/24 11:58 Blood Pressure 148/75 05/06/24 11:58 Pulse Oximetry 99 05/06/24 11:58 Oxygen Delivery Me thod Room Air 05/06/24 11:58 MDM - Allergic Reaction Medical Decision Making Patient's group A strep is positive. She will be given IM Bicillin. She may use viscous lidocaine up to 4 times daily to help with throat discomfort. Retur n to ED precautions discussed. Medical Records I reviewed the patient's medical records. Lab Data I reviewed the patient's lab results. Laboratory Results Group A Strep Rapid Positive (Negative) H 05/06/24 13:37 XR interpretation done by ED provider, pending radiology final review Discharge Plan Discharge Patient Disposition: Home Clinical Impression: Acute streptococcal pharyngitis Condition: Stable Prescriptions: New lidocaine HCl [Lidocaine Viscous] 2 % solution 15 ml MUCOUS MEM QID Qty: 100 0RF Rx Instructions: Mix with water and gargle 1-2 minutes, then spit No Action cyclobenzaprine 10 mg tablet 10 mg PO TID PRN (Reason: muscle spasm) Qty: 30 0RF cyanocobalamin (vitamin B-12) [Vitamin B-12] 500 mcg tablet 500 mcg PO DAILY Qty: 90 3RF levothyroxine 25 mcg tablet See Rx Instructions .ROUTE .COMPLEX Qty: 90 3RF Dose Instruction: TAKE 1 TABLET BY MOUTH IN THE MORNING 30 MINUTES PRIOR TO EATING WITH WATER ONLY Rx Instructions: TAKE 1 TABLET BY MOUTH IN THE MORNING 30 MINUTES PRIOR TO EATING WITH WATER ONLY metformin 1,000 mg tablet 1,000 mg PO BID Qty: 60 6RF glyburide 5 mg tablet See Rx Instructions .ROUTE .COMPLEX Qty: 120 6RF Dose Instruction: Take 2 tablets by mouth twice daily Rx Instructions: Take 2 tablets by mouth twice daily Lantus Solostar U-100 Insulin 100 unit/mL (3 mL) insulin pen 100 unit SUBCUT BID Qty: 60 4RF Ozempic 0.25 mg or 0.5 mg (2 mg/3 mL) pen injector 0.25 mg SUBCUT Q7D Qty: 3 3RF Rx Instructions: Inject 0.25mg Q7D for 4 weeks, then increase to 0.5mg Q7D Discharge Orders: Discharge ED (Routine); Ordered 05/06/24 Ordered By: Edna Cordova Referrals: Michoacano Mendoza MD [Primary Care Provider] - Patient Instructions: Strep Throat (DC), Strep Throat - Adult Activity Restrictions/Additional Instructions: As we discussed, you were given IM antibiotics here and do not require an oral prescription following this. You may miner pick the viscous lidocaine to see if this will give you any relief of your throat discomfort. You may continue to use Tylenol and/or Ibuprofen as well warm salt water gargles. Coding Level of Care Code ED Advertising Sales Representative for Chandrakant Hernandes
[2024-05-06 13:57] LABS: Rapid Strep A Test Positive (Negative)
[2024-05-06] MEDS: lidocaine 2% viscous 15 mL UDC 20 ML TOPICAL (14:16)
[2024-05-06] MEDS: methylPREDNISolone sod succ 125 mg/2 mL INJ IVP (14:19)
[2024-05-06] MEDS: penicillin g (L-A) 1,200,000 unit/2 mL Syr 1200000 UNIT IM (14:19)
[2024-05-06 14:23] VITALS: BP 137/84; PULSE 96; RESP 16; O2SAT 98
[2024-05-06 14:48] VITALS: BP 129/83; PULSE 97; O2SAT 96
== END 2024-05-06 14:50 | disposition home or self-care (01) ==
PROVIDERS: Family Medicine; Emergency Provider Physician Assistant; PCP Family Medicine
DX: J02.0 Streptococcal pharyngitis (principal); Z79.84 Long term (current) use of oral hypoglycemic drugs; E11.9 Type 2 diabetes mellitus without complications
CPT/HCPCS: 71045; 87880; 96372; 96374; 99284; J0561; J2919

== ENCOUNTER 2025-01-02 18:06 | Emergency (ER) | payer OTHER, SELFPAY ==
[2025-01-02 18:15] VITALS: BP 177/96; PULSE 93; RESP 18; TEMP 36.6; O2SAT 99; BMI 42.6
--- NOTE | 2025-01-02 18:36 | ED_ITS ---
HPI - Back Pain/Injury General: Chief Complaint: Back Pain/Injury Stated Complaint: Back and Left Side Pain Time Seen by Provider: 01/02/25 18:08 History of Present Illness: 34-year-old female with a history of sci atica, hypothyroidism, diabetes and obesity who presents emergency room with low back pain. She said it became concerning to her because pain radiated up the side of her back. No trauma. No saddle numbness, no urinary retention or incontinence, no focal motor deficit, no sensory deficit. no recent fever. no cough. no shortness of breath. no chest pain. no abdominal pain. no nausea or vomiting. no dysuria. no altered mental status. no edema. Related Data Previous Rx's ?Medication ?Instructions ?Recorded cyclobenzaprine 10 mg tablet 10 mg PO TID PRN muscle s pasm #30 05/14/23 tabs cyanocobalamin (vitamin B-12) 500 500 mcg PO DAILY #90 tabs 05/17/23 mcg tablet (Vitamin B-12) levothyroxine 25 mcg tablet See Rx Instructions .Route 07/13/23 .COMPLEX #90 tabs insulin glargine 100 unit/mL (3 100 unit SUBCUT BID #6 0 mL 01/05/24 mL) subcutaneous pen (Lantus Solostar U-100 Insulin) semaglutide 0.25 mg or 0.5 mg (2 0.25 mg (0.368 mL) HARPER BCUT Q7D #3 mL 02/28/24 mg/3 mL) subcutaneous pen injector (Ozempic) lidocaine HCl 2 % mucosal solution 15 ml mucous membra ne QID #100 mL 05/06/24 (Lidocaine Viscous) glyburide 5 mg tablet See Rx Instructions .Route 0 09/01/24 .COMPLEX #120 tabs metformin 1,000 mg tablet See Rx Instructions .Route 0 09/01/24 .COMPLEX #60 tabs cyclobenzaprine 10 mg tablet 10 mg PO Q8H PRN muscle s pasm #20 01/02/25 tabs dexamethasone 6 mg tablet 6 mg PO DAILY 5 days #5 tabs 01/02/25 diclofenac sodium 50 mg 50 mg PO BID PRN pain #14 ta bs 01/02/25 tablet,delayed release hydrocodone 5 mg-acetaminophen 325 1 tab PO Q6H PRN pa in #20 tabs 01/02/25 mg tablet Allergies Allergy/AdvReac Type Severity Reaction Status Date / Time No Known Allergies Allergy Verified 01/02/25 18:20 Review of Systems Narrative: Constitutional symptoms: Negative except as documented in HPI. Skin symptoms: Negative except as documented in HPI. Eye symptoms: Negative except as documented in HPI. ENMT symptoms: Negative except as documented in HPI. Respiratory symptoms: Negative except as documented in HPI. Cardiovascular symptoms: Negative except as documented in HPI. Gastrointestinal symptoms: Negative except as documented in HPI. Genitourinary symptoms: Negative except as documented in HPI. Musculoskeletal symptoms: Negative except as documented in HPI. Neurologic symptoms: Negative except as documented in HPI. Psychiatric symptoms: Negative except as documented in HPI. Endocrine symptoms: Negative except as documented in HPI. PFSH ED PFSH: Medical History (Updated 01/02/25 @ 18:37 by Rosy Parkinson MD) Sciatica Elevated blood pressure reading without diagnosis of hypertension Hx of renal calculi Hypothyroidism Diabetes mellitus type 2, on insulin Surgical History Previous section X2 Family History Sister Female fertility problems Other Diabetes Hyperlipidemia Hypertension Thyroid disease Social History Smoking and tobacco/nicotine status: never used tobacco/nicotine Alcohol intake: never Substance/Drug Use: never Female Reproductive History: Date of last menstrual period: 12/29/24 Physical Exam Narrative: EXAM NARRATIVE: General: Alert, no acute distress. Head: Normocephalic Neck: Trachea midline Eye: Extraocular movements are intact. Ears, nose, mouth and throat: Oral mucosa moist Respiratory: Respirations are non-labored Musculoskeletal: Normal ROM Back: no step off, no focal tenderness, some paraspinal muscle tenderness Neurological: Alert and oriented, No focal neurological deficit observed. Psychiatric: Cooperative, appropriate mood & affect. Course Vital Signs: Vital signs: Vital Signs Temperature 97.9 F 01/02/25 18:15 Pulse Rate 93 01/02/25 18:15 Respiratory Rate 18 01/02/25 18:15 Blood Pressure 177/96 01/02/25 18:15 Pulse Oximetry 99 01/02/25 18:15 MDM - Back Pain/Injury Medical Decision Making Medical decision making: Differential diagnosis including but not limited to and based on the above HPI, review of systems and physical exam: In this patient with mid back pain with some radiating pain she likely has a radiculopathy. At this point imaging not indicated. We will try her on symptomatic management and she can follow with her primary in the near future. No black flag symptoms. Orders placed to evaluate differential diagnosis based on the above differential, HPI and physical exam Assessment and plan: Lumbar radiculopathy ?IM Decadron, IM Toradol and p.o. Hundred - Discharged home - Discussed plan with patient. Answered any questions. - Evaluation and treatment of this problem were appropriate in the emergency setting. No radiology studies performed this visit Discharge Plan Discharge Patient Disposition: Home Clinical Impression: Lumbar radiculopathy Condition: Stable Prescriptions: New cyclobenzaprine 10 mg tablet 10 mg PO Q8H PRN (Reason: muscle spasm) Qty: 20 0RF hydrocodone-acetaminophen 5-325 mg tablet 1 tab PO Q6H PRN (Reason: pain) Qty: 20 0RF dexamethasone 6 mg tablet 6 mg PO DAILY 5 Days Qty: 5 0RF diclofenac sodium 50 mg tablet,delayed release (DR/EC) 50 mg PO BID PRN (Reason: pain) Qty: 14 0RF No Action cyclobenzaprine 10 mg tablet 10 mg PO TID PRN (Reason: muscle spasm) Qty: 30 0RF cyanocobalamin (vitamin B-12) [Vitamin B-12] 500 mcg tablet 500 mcg PO DAILY Qty: 90 3RF levothyroxine 25 mcg tablet See Rx Instructions .ROUTE .COMPLEX Qty: 90 3RF Dose Instruction: TAKE 1 TABLET BY MOUTH IN THE MORNING 30 MINUTES PRIOR TO EATING WITH WATER ONLY Rx Instructions: TAKE 1 TABLET BY MOUTH IN THE MORNING 30 MINUTES PRIOR TO EATING WITH WATER ONLY Lantus Solostar U-100 Insulin 100 unit/mL (3 mL) insulin pen 100 unit SUBCUT BID Qty: 60 4RF Ozempic 0.25 mg or 0.5 mg (2 mg/3 mL) pen injector 0.25 mg SUBCUT Q7D Qty: 3 3RF Rx Instructions: Inject 0.25mg Q7D for 4 weeks, then increase to 0.5mg Q7D metformin 1,000 mg tablet See Rx Instructions .ROUTE .COMPLEX Qty: 60 6RF Dose Instruction: TAKE ONE TABLET BY MOUTH TWICE DAILY Rx Instructions: TAKE ONE TABLET BY MOUTH TWICE DAILY glyburide 5 mg tablet See Rx Instructions .ROUTE .COMPLEX Qty: 120 6RF Dose Instruction: TAKE TWO TABLETS BY MOUTH TWICE DAILY Rx Instructions: TAKE TWO TABLETS BY MOUTH TWICE DAILY lidocaine HCl [Lidocaine Viscous] 2 % solution 15 ml MUCOUS MEM QID Qty: 100 0RF Rx Instructions: Mix with water and gargle 1-2 minutes, then spit Discharge Orders: Discharge ED (Routine); Ordered 01/02/25 Ordered By: Rosy Parkinson Referrals: Michoacano Mendoza MD [Primary Care Provider, Family Practice] Discharge Diet: Usual diet Discharge Activity: Increase activity as tolerated Patient Instructions: Lumbar Radiculopathy (ED), Opioid Safety, Pain Management, Patient Portal & Coleen Instructions Activity Restrictions/Additional Instructions: Thank you for choosing [facility] for your healthcare needs today. You have been screened and evaluated and felt safe for discharge. Health conditions do change or evolve sometimes and as such it is important that you follow up with your Primary Doctor to be re checked, 3-5 days is a general good time frame for follow up. You are always welcome to return to the ED for re assessment if your symptoms are worsening or you have new concerns Print Language: Yakut Coding Level of Care Code ED Cigar Making Supervisor for Chandrakant Hernandes
[2025-01-02] MEDS: HYDROcodone-acetaminophen 10-325 mg Tablet 1 TAB PO (18:53)
[2025-01-02 20:09] VITALS: BP 153/89; PULSE 89; O2SAT 99
== END 2025-01-02 20:10 | disposition home or self-care (01) ==
PROVIDERS: Emergency Provider Emergency Medicine; PCP Family Medicine
DX: M54.16 Radiculopathy, lumbar region (principal); Z79.84 Long term (current) use of oral hypoglycemic drugs; E11.9 Type 2 diabetes mellitus without complications
CPT/HCPCS: 96372; 99284; J1100; J1885; J9999

== ENCOUNTER 2025-01-05 15:44 | Outpatient (CLI) | payer OTHER, SELFPAY ==
--- NOTE | 2025-01-05 15:50 | XRR_ITS ---
PROCEDURE INFORMATION: Exam: XR Lumbosacral Spine Exam date and time: 01/05/2025 03:59 PM Age: 34 years old Clinical indication: Low back pain; Additional info: Lumbar radiculopathy TECHNIQUE: Imaging protocol: Radiologic exam of the lumbosacral spine. Views: 2 or 3 views. COMPARISON: CR XR lumbar spine 2-3V* [id number] 05/03/2023 10:07 AM FINDINGS: Bones/joints: Six non-ribbed lumbar vertebral bodies. Vertebral body alignment is normal. Vertebral body axial heights and disc spaces are maintained. Pedicles are visualized. Soft tissues: Paraspinal muscles are unremarkable. XR/XR lumbar spine 2-3V* [id number] IMPRESSION: Unremarkable lumbar spine.
== END 2025-01-05 15:45 | disposition home or self-care (01) ==
PROVIDERS: PCP Family Medicine; Visit Provider Family Medicine
DX: M54.16 Radiculopathy, lumbar region (principal)
CPT/HCPCS: 72100

== ENCOUNTER 2025-03-26 07:13 | Outpatient (CLI) | payer OTHER, SELFPAY ==
--- NOTE | 2025-03-26 07:21 | MR_ITS ---
WS: [id number] MRI BRAIN WITH AND WITHOUT CONTRAST HISTORY: Vertigo, facial numbness COMPARISON: 03/18/2022 TECHNIQUE: Multiplanar imaging performed through the brain with MultiHance 20 ml's IV. No acute infarcts are seen. Espitia-white matter differentiation is well preserved. No hippocampal atrophy. No susceptibility artifacts or prior lacunar infarcts. Ventricles and extra-axial spaces are normal. Clivus and pituitary gland are normal. Visualized posterior fossa and brainstem are also normal. Postcontrast images are negative for masses or vascular malformations. Dural venous sinuses are normal. Paranasal sinuses: Well aerated with no significant disease. Mastoid air cells: Normal. Calvarium and scalp: Normal. MR/MR head wo/w con [id number] IMPRESSION: 1. No diffusion abnormalities or ischemia. 2. No significant volume loss or prior infarct. 3. No enhancing masses or vascular malformation. 4. Stable MRI brain since 03/18/2022.
[2025-03-26] MEDS: gadobenate dimeglumine 20 mL vial IV (08:39)
== END 2025-03-26 07:14 | disposition home or self-care (01) ==
LOC: RAD 07:13
PROVIDERS: PCP Family Medicine; Visit Provider Family Medicine
DX: R20.0 Anesthesia of skin (principal)
CPT/HCPCS: 70553

== ENCOUNTER → 2025-03-29 15:39 | Outpatient (BNVA) | payer OTHER, SELFPAY | PROVIDERS: PCP Family Medicine; Visit Provider Orthopaedic Surgery | DX: M54.16 Radiculopathy, lumbar region (principal); M54.32 Sciatica, left side | CPT/HCPCS: 72110 ==